=== PATIENT | female | born 1990 | race Two or more races ===

== ENCOUNTER → 2022-07-20 | Emergency (ER) | payer MEDICAID, OTHER ==
[~2022-07-20] VITALS: Ht 160 cm; Wt 75.0 kg
[2022-07-20 21:58] VITALS: BP 121/43
== END | disposition left against medical advice (07) ==
LOC: ER 21:36
DX: R05.9 Cough, unspecified (principal); Z53.21 Procedure and treatment not carried out due to patient leaving prior to being seen by health care provider